=== PATIENT | female | born 1935 | race Caucasian/White ===

== ENCOUNTER 2016-12-15 14:35 | Emergency (ER) | payer MEDICARE, OTHER ==
[2016-12-15] MEDS ORDERED: Ondansetron HCl/PF 4 MG/2 ML Vial ONE (15:07)
[2016-12-15 15:08] LABS: #Basophils 0.1 thou/uL (0.0-0.2); #Neutrophils 16.5 thou/uL (1.40-6.50); %Basophils 0.3 % (0.0-1.0); %Eosinophils 0.1 % (0.0-10.0); %Lymphocytes 5.6 % (21.0-51.0); %Monocytes 5.5 % (0.0-10.0); %Neutrophils 88.5 % (42.0-75.0); Hemoglobin 12.1 g/dL (12.0-16.0); Mean Corpuscular HGB CONC 33.8 g/dL (32.0-36.0); Mean Corpuscular Hemoglobin 32.7 pg (27.0-31.0); Mean Corpuscular Volume 96.7 fl (81.0-99.0); Mean Platelet Volume 8.3 fL (7.4-10.4); Platelet Count 258 thou/uL (130-400); RBC Distribution Width 12.3 % (11.5-14.5); White Blood Cell (WBC) Count 18.6 thou/uL (4.8-10.8)
[2016-12-15] MEDS ORDERED: Naproxen 500 MG TAB ONE (15:08)
[2016-12-15] MEDS ORDERED: Acetaminophen 500 MG TAB ONE ×2 (15:08→15:21)
[2016-12-15] MEDS ORDERED: HYDROcodone/Acetaminophen 10/325 mg Tablet ONE (15:08)
[2016-12-15] MEDS ORDERED: Benzonatate 100 MG CAP ONE (15:08)
[2016-12-15 15:13] LABS: ALT (SGPT) 19 U/L (0-55); AST (SGOT) 35 U/L (5-34); Albumin 4.2 g/dL (3.4-4.8); Alkaline Phosphatase 82 U/L (40-150); Anion Gap 16 mmol/L (10-20); BUN (Urea Nitrogen) 31 mg/dL (9.8-20.1); Bilirubin, Total 0.8 mg/dL (0.2-1.2); CK (CPK) 64 U/L (29-168); Calc. Creatinine Clearance 0 mL/min (70-130); Calcium 9.6 mg/dL (7.8-10.44); Carbon Dioxide 21 mmol/L (23-31); Chloride 103 mmol/L (98-107); Estimated GFR-MDRD 51; Globulin 2.7 g/dL (2.4-3.5); Glucose 133 mg/dL (83-110); Magnesium 1.9 mg/dL (1.6-2.6); Potassium 4.4 mmol/L (3.5-5.1); Protein, Total 6.9 g/dL (5.8-8.1); Prothrombin Time 13.7 SEC (12.0-14.7); Sodium 136 mmol/L (136-145)
[2016-12-15 15:19] LABS: CKMB 0.5 ng/mL (0-6.6); Troponin I Less than 0.010 ng/mL (< 0.028)
--- NOTE | 2016-12-15 15:30 | RAD ---
PORTABLE CHEST 1 VIEW: Date: 12/15/16 Time: 1507 hours HISTORY: Cough. FINDINGS: Comparison made with exam of 01/05/16. The heart size is borderline. The lungs are well expanded without focal areas of consolidation, pneu mothorax, or pleural effusions. IMPRESSION: No acute process. POS: [facility]
[2016-12-15 16:02] LABS: Blood, Urine Moderate (Negative); Clarity Clear (Clear); Glucose, Urine (Dipstick) Negative (Negative); Leukocyte Negative (Negative); Nitrite Negative (Negative); Protein, Urine (Dipstick) Negative (Neg-Trace); Urobilinogen 0.2 mg/dL (0.2-1.0)
[2016-12-15 16:05] LABS: Bilirubin Small (Negative); Icto Negative (Negative); WBC/HPF 0-3 HPF (0-3)
[2016-12-15 16:06] LABS: Bacteria/HPF Rare-Few HPF (None Seen)
[2016-12-15] MEDS ORDERED: AMOXicillin 250 MG CAP ONE (16:40)
== END 2016-12-15 16:48 | disposition home or self-care (01) ==
LOC: MADERS 14:35
DX: J20.9 Acute bronchitis, unspecified (principal)
CPT/HCPCS: 51701; 71010; 80053; 81003; 81015; 82553; 83735; 83880; 84484; 85025; 85610; 85730; 87081; 87086; 87430; 93005; 94760; 96374; A4353; J2405

== ENCOUNTER 2021-08-24 11:27 | Outpatient (CLI) | payer MEDICARE | END 2021-08-24 11:28 | disposition home or self-care (01) | LOC: MADLAB 11:27 → MADEKG 11:28 | PROVIDERS: ATTEND Emergency Medicine | DX: I10 Essential (primary) hypertension (principal) | CPT/HCPCS: 93005; 93010 ==

== ENCOUNTER 2021-09-21 09:53 | Emergency (ER) | payer MEDICARE, OTHER ==
[2021-09-21 20:13] LABS: SARS-CoV-2 PCR by NAA Not Detected (NotDetected)
== END 2021-09-21 10:40 | disposition home or self-care (01) ==
LOC: MADERS 09:53
DX: Z20.822 Contact with and (suspected) exposure to COVID-19 (principal); I10 Essential (primary) hypertension
CPT/HCPCS: 99283; U0003; U0005

== ENCOUNTER 2022-01-19 15:50 | Emergency (ER) | payer MEDICARE ==
[~2022-01-19 15:50] MED LIST: Sodium Chloride 0.9% 500 ML BAG ONE
[2022-01-19 18:38] LABS: White Blood Cell (WBC) Count 6.5 thou/uL (4.8-10.8)
[2022-01-19 18:39] LABS: #Eosinphils 0.2 thou/uL (0.0-0.7); #Lymphocytes 2.3 thou/uL (1.20-3.40); #Monocytes 0.7 thou/uL (0.11-0.59); #Neutrophils 3.2 thou/uL (1.40-6.50); %Basophils 1.1 % (0.0-1.0); %Eosinophils 3.3 % (0.0-10.0); %Lymphocytes 35.7 % (21.0-51.0); %Monocytes 10.2 % (0.0-10.0); %Neutrophils 49.7 % (42.0-75.0); Hemoglobin 10.7 g/dL (12.0-16.0); Mean Corpuscular Hemoglobin 30.6 pg (27.0-31.0); Mean Corpuscular Volume 98.9 fL (78.0-98.0); Mean Platelet Volume 10.3 fL (7.4-10.4); Platelet Count 240 thou/uL (130-400); RBC Distribution Width 12.7 % (11.5-14.5)
[2022-01-19 18:40] LABS: #Basophils 0.1 thou/uL (0.0-0.2)
[2022-01-19 18:45] LABS: Anion Gap 17 mmol/L (10-20); BUN (Urea Nitrogen) 40 mg/dL (9.8-20.1); Bilirubin, Total 0.3 mg/dL (0.2-1.2); Calc. Creatinine Clearance 0 mL/min (70-130); Calcium 9.5 mg/dL (7.8-10.44); Carbon Dioxide 24 mmol/L (23-31); Chloride 106 mmol/L (98-107); Glucose 142 mg/dL (83-110); Potassium 4.3 mmol/L (3.5-5.1); Sodium 143 mmol/L (136-145)
[2022-01-19 18:46] LABS: ALT (SGPT) 9 U/L (8-55); AST (SGOT) 20 U/L (5-34); Albumin 4.2 g/dL (3.4-4.8); Alkaline Phosphatase 66 U/L (40-110); Globulin 2.5 g/dL (2.4-3.5); Protein, Total 6.7 g/dL (5.8-8.1)
[2022-01-19 19:35] LABS: Bilirubin Negative (Negative); Blood, Urine Negative (Negative); Clarity Clear (Clear); Glucose, Urine (Dipstick) Negative (Negative); Ketone, Urine Negative (Negative); Leukocyte Negative (Negative); Nitrite Negative (Negative); Protein, Urine (Dipstick) Negative (Neg-Trace); Specific Gravity, Urine 1.015 (1.005-1.030); Urobilinogen 0.2 mg/dL (Less than 2)
== END 2022-01-19 20:33 | disposition home or self-care (01) ==
LOC: MADERS 15:50
DX: N17.9 Acute kidney failure, unspecified (principal); R00.1 Bradycardia, unspecified; I10 Essential (primary) hypertension; Z79.899 Other long term (current) drug therapy
CPT/HCPCS: 71045; 80053; 81003; 83880; 84484; 85025; 93005; J7030

== ENCOUNTER 2025-07-02 09:20 | Emergency (ER) | payer MEDICARE ==
[~2025-07-02 09:20] MED LIST changes: +Iopamidol 370 76% 100 ML VIAL ONE; -Sodium Chloride 0.9% 500 ML BAG ONE
[2025-07-02 10:23] LABS: Hematocrit 31.5 % (36.0-47.0); Hemoglobin 9.9 g/dL (12.0-16.0); Mean Corpuscular Hemoglobin 30.4 pg (27.0-31.0); Mean Corpuscular Volume 96.6 fl (78.0-98.0); Platelet Count 237 10x3/uL (130-400); Red Blood Cell (RBC) Count 3.26 mill/uL (4.20-5.40); White Blood Cell (WBC) Count 10.4 10x3/uL (4.8-10.8)
[2025-07-02 10:31] LABS: ALT (SGPT) 7 U/L (Less than 34); AST (SGOT) 23 U/L (11-34); Albumin 3.8 g/dL (3.1-4.5); Alkaline Phosphatase 43 U/L (40-110); Anion Gap 18 mmol/L (10-20); BUN (Urea Nitrogen) 21 mg/dL (9.8-20.1); Bilirubin, Total 0.7 mg/dL (0.3-1.2); Calc. Creatinine Clearance 0 mL/min (70-130); Calcium 8.5 mg/dL (7.8-10.44); Carbon Dioxide 15 mmol/L (23-31); Chloride 109 mmol/L (98-107); Globulin 2.7 g/dL (2.4-3.5); Glucose 173 mg/dL (83-110); Lipase 5 U/L (8-78); Magnesium 1.6 mg/dL (1.6-2.6); Potassium 3.5 mmol/L (3.5-5.1); Sodium 138 mmol/L (136-145)
[2025-07-02 10:40] LABS: Anisocytosis SLIGHT = 6-15 cells (100X) (0-5/hpf); MDiff Complete? YES; Manual Diff?? YES; Poikilocytosis SLIGHT = 6-15 cells (100X) (0-5/hpf)
[2025-07-02 10:41] LABS: Ovalocytes SLIGHT = 2-5 cells (100X) (0-1/hpf); Platelet Adequacy Comment Appears Adequate
[2025-07-02] MEDS ORDERED: Ondansetron PF 4 MG/2 ML Vial ONE (10:43)
[2025-07-02] MEDS ORDERED: Magnesium 2 GM/50 ML BAG (IN WATER) ONE (10:55)
[2025-07-02] MEDS ORDERED: Diphenoxylate HCl/Atropine Tablet ONE (11:44)
[2025-07-02] MEDS ORDERED: Azithromycin 250 MG TAB ONE (11:57)
[2025-07-02] MEDS ORDERED: Acetaminophen 325 MG TAB ONE (12:19)
== END 2025-07-02 12:23 | disposition home or self-care (01) ==
LOC: MADERS 09:20
DX: E86.0 Dehydration (principal); D64.9 Anemia, unspecified; N81.4 Uterovaginal prolapse, unspecified; R11.10 Vomiting, unspecified; I10 Essential (primary) hypertension; F03.90 Unspecified dementia, unspecified severity, without behavioral disturbance, psychotic disturbance, mood disturbance, and anxiety
CPT/HCPCS: 36415; 74177; 80053; 83690; 83735; 85025; 94760; 96361; 96365; 96375; J3475; J7030; Q9967